=== PATIENT | male | born 1995 | race Hispanic/Latino ===

== ENCOUNTER 2016-11-18 22:23 | Emergency (ER) | payer SELFPAY ==
[2016-11-18] MEDS ORDERED: Ondansetron HCl/PF 4 MG/2 ML Vial ONE (22:50)
== END 2016-11-18 23:45 | disposition home or self-care (01) ==
LOC: ERS 22:23
DX: F10.129 Alcohol abuse with intoxication, unspecified (principal)
CPT/HCPCS: 96361; 96374; J2405